=== PATIENT | male | born 1955 | race Caucasian/White ===

== ENCOUNTER → 2020-09-01 09:30 | Outpatient (BNVA) | payer MEDICARE, SELFPAY | PROVIDERS: Family Provider Electrodiagnostic Medicine; PCP Emergency Medicine; Visit Provider Internal Medicine Cardiovascular Disease | DX: E78.5 Hyperlipidemia, unspecified (principal) | CPT/HCPCS: 80061 ==

== ENCOUNTER → 2021-01-13 11:20 | Outpatient (BNVA) | payer MEDICARE, SELFPAY | PROVIDERS: Family Provider Electrodiagnostic Medicine; PCP Emergency Medicine; Referring Provider Electrodiagnostic Medicine; Visit Provider Urology | DX: N40.0 Benign prostatic hyperplasia without lower urinary tract symptoms (principal); R31.9 Hematuria, unspecified | CPT/HCPCS: 81003; 87086; 88112 ==

== ENCOUNTER 2021-01-18 08:53 | Outpatient (CLI) | payer MEDICARE, SELFPAY ==
[2021-01-18 09:46] LABS: Blood Urea Nitrogen 14 mg/dL (8-23); Glomerular Filtration Rate 74.5 mL/min (90-130)
[2021-01-18] MEDS: iohexol 300 mg/mL 100 mL Btl IV (10:00)
--- NOTE | 2021-01-18 10:30 | CT_ITS ---
WS: [id number] CT ABDOMEN AND PELVIS WITH AND WITHOUT CONTRAST HISTORY: HEMATURIA TECHNIQUE: Unenhanced 5 mm axial imaging first performed through the abdomen. Post contrast imaging t hrough the abdomen and pelvis. Oral contrast has not been provided. Sagittal and coronal reformats a re submitted. All CT scans at [facility] use at least one of these dose optimization tech niques: automated exposure control; mA and/or kV adjustment per patient size (includes targeted exams where dose is matched to clinical indication); or iterative reconstruction. CONTRAST: Omnipaque 300; 95 mL IV. DLP: 3872.43 mGy.cm COMPARISON: None available. Lung bases are clear. Mild enlargement of the heart. Dense calcification or RIGHT coronary artery jojo nt. Small hiatal hernia. Normal size liver. There are a few scattered hypodensities which are too small to characterize. The l argest is 4 mm along the diaphragmatic surface. No bile duct dilatation. Normal portal vein. Normally distended gallbladder with cholelithiasis. No acute cholecystitis. Normal size spleen with a few gra nulomata. No adrenal mass. Mild atherosclerosis aorta. No adenopathy or ascites. No free fluid. RIGHT kidney: 12.3 cm in length. No renal obstruction, mass or calcification. No uroepithelial lesion in the ureter. LEFT kidney: No hydronephrosis or mass. Seen on the delayed imaging there is a very slight narrowing of the distal LEFT ureter and very small amount of increased soft tissue seen best on the sagittal re formats at the ureteral insertion site. This is asymmetric to the RIGHT. No GI tract obstruction. The appendix is not definitely identified no evidence for appendicitis. No d iverticulitis. Prostate gland is enlarged and heterogeneous encroaching into the bladder. There is a lobulated soft tissue component extending into the lumen of the urinary bladder which is slightly more hypervascular than the remaining prostate gland. Potentially this could represent a bladder neoplasm. The excreted contrast is being distorted by this additional lobulated soft tissue. No osteoblastic or osteolytic bone disease. CT/CT abdomen pelvis wo/w [id number] IMPRESSION: 1. Lobulated soft tissue mass measures 2.5 x 1.9 cm extending into the base of the urinary bladder. This may be part of the prostate gland but the enhancemen t is greater than the adjacent prostate gland. Bladder neoplasm needs to be exc luded. 2. There is additional mild soft tissue thickening at the LEFT UV junction. Ev aluation for possible distal ureteral neoplasm should be considered. No renal o bstruction. 3. Cholelithiasis without acute cholecystitis. 4. No adenopathy or ascites.
== END 2021-01-18 08:54 | disposition home or self-care (01) ==
PROVIDERS: PCP Electrodiagnostic Medicine; Visit Provider Urology
DX: R31.9 Hematuria, unspecified (principal); K80.20 Calculus of gallbladder without cholecystitis without obstruction; N32.9 Bladder disorder, unspecified
CPT/HCPCS: 36415; 74178; 82565; 84520; 87635

== ENCOUNTER 2021-01-21 16:05 | Observation (INO) | payer MEDICARE, SELFPAY ==
[2021-01-21] VITALS (11 sets, daily range): BP systolic 145–186; BP diastolic 82–107; PULSE 51–71; RESP 16–20; TEMP 36.1–37.2; O2SAT 93–97
--- NOTE | 2021-01-21 12:38 | ECG_ITS ---
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 Measurements Intervals [place] Rate: 51 P: 47 NC: 246 QRS: -29 QRSD: 132 T: -16 QT: 465 QTc: 428 Interpretive Statements SINUS BRADYCARDIA WITH FIRST DEGREE AV BLOCK INTRAVENTRICULAR CONDUCTION DELAY [130+ ms QRS DURATION] INFERIOR MYOCARDIAL INFARCTION [40+ ms Q WAVE AND/OR ST/T ABNORMALITY IN II/aVF], OF INDETERMINATE AGE No previous ECG available for comparison Electronically Signed On 01-22-2021 14:57:35 CDT by Sonja Norton M.D. [email or web address]
--- NOTE | 2021-01-21 12:38 | XR_ITS ---
WS: [id number] Chest 2 views, 01/21/2021 Clinical Data: Newly diagnosed bladder tumor Comparison: Portable chest, 04/26/2013. Findings: No nodules, masses or effusions are seen. The heart is normal. The pulmonary vascularity is not increased. No pneumonia or pneumothorax is seen. The aortic arch and descending aorta show mild tortuosity. XR/XR chest 2V* [id number] Impression: Atherosclerosis.
[2021-01-21] MEDS: sodium chloride 0.9% 1,000 ML 30 ML IV (13:11)
--- NOTE | 2021-01-21 13:26 | ANES.PREANE2 ---
Pre-Anesthetic Assessment Pre-Anesthetic Assessment: Height/Weight: Height 29.18 m Weight 97.522 kg Preop Diagnosis: Newly diagnosed bladder tumor Proposed Procedure: Operation Date: 01/21/21 14:15 Proposed Procedures p Transurethral Resection Bladder Tumor 27199 c67.0(Not Applicable) - Oneil Stephens MD s Cystoscopy(Not Applicable) - Oneil Stephens MD Familial anesthetic complications: none Was Beta Yvan taken within 24 hours: N/A Was Clonidine taken within 24 hours: N/A Last intake: Intake Last Liquid Date 01/21/21 Last Liquid Time 09:00 Last Solid Date 01/20/21 Last Solid Time 18:30 Social: Social History: No alcohol and No tobacco Exam: Pre-Anes Outpt Exam: alert, oriented x 3, clear to auscultation bilaterally and regular rate & rhythm Airway: Cervical ROM: WNL MP: 3 Dentition: False CV/HEM: CV/HEM: CAD (stent 2013 - holding plavix) and HTN GI: GI: GERD Metabolic: Metabolic: Hyperlipidemia and Morbid obesity Anesthetic Plan: ASA status: 3 Anesthesia: General Risk of > 500 ml blood loss (7ml/kg in children): No Meds/Allergies Current Medications: Current Medications Generic Name Dose Route Start Last Admin Trade Name Freq PRN Reason Stop Dose Admin Sodium Chloride 1,000 mls @ 30 ml s/hr 01/21/21 13:00 01/21/21 13:11 Sodium Chloride 0.9% IV 01/22/21 12:59 30 mls/hr .Q24H ELAINE Administration PFSH Anesthesia PFSH: Medical History ASHD (arteriosclerotic heart disease) BPH loc w urin obs/LUTS Elevated PSA HTN (hypertension) Primary malignant neoplasm of trigone of urinary bladder Surgical History History of dental surgery History of facial surgery History of surgery on wrist Hx of heart artery stent Family History Father , IN HIS 80'S CAD (coronary artery disease) Diabetes Mother , AT AGE 76 Chronic kidney disease (CKD) Social History Alcohol intake: never Marital status: Current occupational status: retired Data Anesthesia Cardiac Studies: No Data to Display
--- NOTE | 2021-01-21 14:06 | P.HPUD_ITS ---
Surgery/Procedure H&P Update DATE OF PROCEDURE: January 21, 2021 DATE H&P PERFORMED: 01/13/21 H&P UPDATE INFORMATION: I have reviewed H&P completed within last 30 days, I have examined patient prior to procedure, No changes to prior documentation and H&P is in [facility] EMR on date indicated CHANGES TO PREVIOUS DOCUMENTATION: Reviewed again the pertinent points related to the procedure, postop care, long-term surveillance etc. Discussed the locat ion potentially involving ureteral orifice and may require more work to assess the ureter. All questions answered. They expressed contentment and desire to proceed as planned PREOP DIAGNOSIS: Newly diagnosed bladder tumor PLANNED PROCEDURE: Operation Date: 01/21/21 14:15 Proposed Procedures p Transurethral Resection Bladder Tumor 68280 c67.0(Not Applicable) - Oneil Stephens MD s Cystoscopy(Not Applicable) - Oneil Stephens MD
[2021-01-21] MEDS: levofloxacin-dextrose 5 % 500 MG/100 ML PREMIX 100 MG IV (15:05)
--- NOTE | 2021-01-21 15:13 | PM.OP ---
Operative Report Date of procedure: January 21, 2021 Pre-op Diagnosis: Newly diagnosed bladder tumor Post-op Diagnosis: Newly diagnosed bladder tumor Procedure Done: 1. Cystoscopy, transurethral resection of bladder tumor MEDIUM Pathology: Bladder tumor chips Surgeon: Kat Anesthesia: General Estimated blood loss: Less than 20 cc Urine output: Not measured Complications: None Findings: Papillary tumor with appearance of noninvasive, well differentiated. 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 Located on the trigone. Could not tell the clinic whether it was involving the orifices or not. No evidence of that involvement though on CT scan. Admitted now for TURBT. Procedure: After routine preoperative evaluation examination and obtaining of informed consent he was taken to the operating suite on 01/21/2021 where general anesthesia was administered without difficulty after appropriate timeout was performed, SCDs confirmed to be functioning, preoperative antibiotics administered, beta-betsey protocol confirmed. Prepped and draped in usual sterile fashion in dorsolithotomy position paying careful attention to avoiding pressure points. 21 [place]er cystoscope with 30 degree lens was introduced into the urethra meatus and advanced to the bladder to videoscopy. Bladder was systematically examined. The tumor was proven to actually be on a relatively thin stalk onto the posterior bladder neck/prostatic vesicle junction. There was no bladder tumor on the bladder wall proper. The orifices were clear of any lesions. The tumor was Multifrondular coming down to this narrowed area extending probably 3-1/2 to 4 cm in total diameter. Urethra was then calibrated with [place] sounds and easily accommodated 30 [place]er. 2% lidocaine jelly was instilled into the urethra. 25 [place] continuous-flow resectoscope sheath was introduced into the well-lubricated urethra with the visual obturator and advanced into the bladder. A gyrus bipolar system was utilized for resection first with the super loop and the button probe for fulguration. All tumor was resected with the super loop and the tumor was evacuated. Deep sections at the base of the tumor were then collected with the super loop and sent for base of tumor . Button probe was then utilized to fulgurate the bladder neck completely with some extension into the prostatic fossa to avoid bladder neck contracture At the completion of the procedure all tumor specimens were confirmed to be out of the bladder, hemostasis was meticulous. The orifices were uninvolved. Bladder was drained with a 22 [place]er three-way Haji catheter with 35 cc in the balloon. Efflux was clear. No CBI initiated. Irrigation port was plugged Tolerated procedure well without complications and was awakened in the operating room and returned to recovery in stable condition. PLANS: 1. Admit to observation overnight 2. Mitomycin in the senior manager quality assurance 3. Anticipate discharge tomorrow
[2021-01-21 15:18] LABS: Basophils % 0.5 %; Eosinophils # 0.2 10^3/uL (0.0-0.8); Eosinophils % 3.1 %; Hematocrit 39.5 % (42.0-52.0); Hemoglobin 13.1 g/dL (11.7-16.6); Lymphocytes % 18.4 %; Mean Corpuscular HGB Conc 33.2 g/dL (30.0-36.0); Mean Corpuscular Hemoglobin 29.5 pg (28.0-34.0); Mean Platelet Volume 9.9 fL (7.4-10.4); Monocytes # 0.5 10^3/uL (0.2-0.9); Monocytes % 9.8 %; Neutrophils # 3.76 10^3/uL (1.8-7.7); Nucleated Red Blood Cells % 0 %; Platelet Count 243 10^3/cmm (130-400); Red Blood Count 4.44 10^6/uL (4.1-5.3); Red Cell Distribution Width 13.7 % (12.1-15.1); White Blood Count 5.5 10^3/uL (4.0-10.0)
[2021-01-21] MEDS: lidocaine 2% Urojet 20 mL TOPICAL (15:35)
[2021-01-21 16:03] LABS: Alanine Aminotransferase 17 U/L (0-41); Albumin Level 3.7 g/dL (3.5-5.2); Alkaline Phosphatase 100 IU/L (40-130); Anion Gap 12.7 (5-19); Aspartate Amino Transferase 14 U/L (0-40); Blood Urea Nitrogen 17 mg/dL (8-23); Calcium 8.4 mg/dL (8.5-10.5); Carbon Dioxide 28 mmol/L (22-29); Chloride 102 mmol/L (98-107); Globulin 2.4 g/dL (1.3-4.6); Glomerular Filtration Rate 84.2 mL/min (90-130); Glucose 86 mg/dL (65-115); Osmolality Calculated 289 mOsm/kg (285-295); Potassium 3.7 mmol/L (3.5-5.1); Sodium 139 mmol/L (136-145); Total Bilirubin 0.8 mg/dL (0.15-1.2); Total Protein 6.1 g/dL (6.6-8.7)
--- NOTE | 2021-01-21 16:56 | ANE.PACU2 ---
Inpatient post-anesthesia follow up: Airway intact: Yes Vital signs: Temperature 97.7 F Pulse Rate 60 Respiratory Rate 18 Blood Pressure 167/98 Pulse Oximetry 94 Oxygen Delivery Me thod Room Air Oxygen Flow Rate Fraction of Inspir ed Oxygen Hydration adequate: Yes Nausea and vomiting: No Pain level: 2 Mental status: Baseline
[2021-01-21] MEDS: dextrose 5%-ns + KCl 20 20 MEQ/1,000 ML BAG 100 MEQ IV (18:13)
[2021-01-21] MEDS: docusate sodium 100 mg Capsule PO (18:19)
[2021-01-21] MEDS: losartan 50 mg Tablet 100 MG PO (18:19)
[2021-01-21] MEDS: tamsulosin 0.4 mg Capsule PO (18:19)
[2021-01-21] MEDS: metoprolol tartrate 25 mg Tablet PO (20:10)
--- NOTE | 2021-01-21 20:11 | PC.NURSE ---
PM NOTE PER DAY SHIFT NURSE PT POST OP BLOOD PRESSURE HIGH - MONITORED SINCE SHIFT CHANGE AT 1900 - CURRENT BP 171/100 LEFT ARM - METOPROLOL GIVEN - AT SIDE AT STATES PTS HEART RATE NORMAL RUNS MID 50'S
[2021-01-21] MEDS: ALPRAZolam 0.5 mg Tablet PO (20:58)
[2021-01-22 00:05] VITALS: BP 136/84; PULSE 65; RESP 18; TEMP 36.9; O2SAT 93
[2021-01-22 03:15] VITALS: BP 132/79; PULSE 62; RESP 18; TEMP 36.6; O2SAT 96
--- NOTE | 2021-01-22 04:01 | PC.NURSE ---
END OF SHIFT SUMMARY PT HAS RESTED WITHOUT DIFFICULTY THROUGHOUT SHIFT -BLOOD PRESSURE HAS RETURNED TO NORMAL - HAS REMAINED AT SIDE - FAY HAS REMAINED PATENT WITH PEACH TO DARK YELLOW URINE NOTED THROUGHOUT SHIFT - PT HAS NOT VOICED ANY DIFFICULTY THROUGHOUT SHIFT
[2021-01-22] MEDS: dextrose 5%-ns + KCl 20 20 MEQ/1,000 ML BAG 100 MEQ IV (04:50)
--- NOTE | 2021-01-22 06:45 | PC.NURSE ---
[address] URIBE INFUSED MITOMYCIN PER FAY INTO BLADDER - CLAMPED PER DOC - PT INSTRUCTED THAT CATHETER WILL BE DRAINED IN 1 HOUR AND TO NOTIFY STAFF IF INABILITY TO WAIT 1 HOUR PRIOR TO DRAINING - DAYSHIFT NURSE TO UNCLAMP, DRAIN AND REINSTILL BLADDER WITH APPROX 200 NS PRIOR TO DISCONTINUING FAY - PT TO HAVE 1-2 GOOD VOIDS PRIOR TO DISCHARGE
--- NOTE | 2021-01-22 06:48 | P.DS_ITS ---
Discharge Providers Date of Admission: 01/21/21 16:05 Date of Discharge: January 22, 2021 Attending Provider at Admission: Oneil Stephens MD Attending Provider at Discharge: Oneil Stephens MD Primary Care Provider: Jermaine Day DO Diagnoses at Discharge Discharge Diagnosis (1) Primary cancer of urinary bladder neck: Status: Acute Permanent problem details: Arising at the 7 o'clock position at the bladder neck extending into the prostatic lumen just barely. TURBT on 01/21/2021 (2) HTN (hypertension): Status: Acute Qualifiers: Hypertension type: essential hypertension Qualified Code(s): I10 - Essential (primary) hypertension (3) ASHD (arteriosclerotic heart disease): Status: Acute (4) BPH loc w urin obs/LUTS: Status: Acute Reason for Visit Reason for Visit: cystoscopy transurethral resection of bladder tumo Hospital Course Hospital Course Was admitted on the day of the procedure which went well. In the clinic it appeared that the tumor was at the trigone but under anesthesia inspection showed that it was emanating off a relatively small stalk at the 6 o'clock position at the bladder neck. It was completely resected and the base fulgurated after deep sampling. His postoperative course was unremarkable. Procedure: MITOMYCIN INTRAVESICAL INSTILLATION 40 mg in 40 cc normal saline instilled for 1 hour into the bladder. Tolerated well. No complications I personally instilled the medication. Passed a voiding trial without difficulty. Discharged in stable condition the morning of postop day #1. PLANS: 1. Follow-up in about 2 months with first surveillance cystoscopy 2. Call next week for pathology report check if he has not heard from my office 3. Informed him how to reach me after hours if there is any concerns or questions. Physical Exam Narrative: EXAM NARRATIVE: Alert oriented no acute distress No labored respirations Abdomen: Soft nontender normal genitourinary exam. Urine is clear Psychiatric: Normal mentation. Extremity: No edema no cyanosis Urinary Catheter Management^: 3-way Urethral CBI: Cath Placed During This Visit: yes Reason for Continuing Indwelling Catheter: Required Immobilization for Trauma or Surgery or Anesthesia Urinary Catheter Date of Insertion: 01/21/21 Urinary Catheter Time of Insertion: 15:45 Discharge Data Data Completed and Pending: Completed Studies During Hospitalization Category Date Time Status XR chest 2V* 7104 6 Routine Exams 01/21/21 12:38 Completed Pending at discharge Category Date Time Status Pathology: Surgic al [PTH] Routine Pth 01/22/21 06:44 Ordered Labs from last 24 hours 01/21/21 01/21/21 13:31 13:31 WBC 5.5 RBC 4.44 Hgb 13.1 Hct 39.5 L MCV 89.0 MCH 29.5 MCHC 33.2 RDW 13.7 Plt Count 243 MPV 9.9 Neut % (Auto) 68.0 Lymph % (Auto) 18.4 Spencer % (Auto) 9.8 Eos % (Auto) 3.1 Baso % (Auto) 0.5 Neut # (Auto) 3.76 Lymph # (Auto) 1.0 Spencer # (Auto) 0.5 Eos # (Auto) 0.2 Baso # (Auto) 0.0 Nucleated RBC % (a uto) 0 Nucleated RBCs # 0.0 Sodium 139 Potassium 3.7 Chloride 102 Carbon Dioxide 28 Anion Gap 12.7 BUN 17 Creatinine 0.9 GFR Calculation 84.2 L Glucose 86 Calculated Osmolal ity 289 Calcium 8.4 L Total Bilirubin 0.8 AST 14 ALT 17 Alkaline Phosphata se 100 Total Protein 6.1 L Albumin 3.7 Globulin 2.4 Vitals: Last Vital Signs Temp 97.9 F 01/22/21 03:15 Pulse 62 01/22/21 03:15 Resp 18 01/22/21 03:15 BP 132/79 01/22/21 03:15 Pulse Ox 96 01/22/21 03:15 Discharge Plan Discharge Patient Disposition: Home Condition: Stable Prescriptions: Continued omeprazole 40 mg capsule,delayed release(DR/EC) 40 mg PO DAILY RF: 0 citalopram [Celexa] 20 mg tablet 20 mg PO DAILY RF: 0 alprazolam [Xanax] 0.5 mg tablet 0.5 mg PO DAILY PRN (Reason: Anxiety) RF: 0 tamsulosin 0.4 mg capsule 0.4 mg PO BID RF: 0 simvastatin 40 mg tablet 40 mg PO DAILY Qty: 90 RF: 3 isosorbide mononitrate 30 mg tablet extended release 24 hr 30 mg PO DAILY Qty: 90 RF: 3 metoprolol tartrate 25 mg tablet 25 mg PO BID Qty: 180 RF: 3 hydrochlorothiazide 12.5 mg capsule 12.5 mg PO DAILY Qty: 90 RF: 3 losartan 100 mg tablet 100 mg PO BID Qty: 180 RF: 3 nitroglycerin [Nitrostat] 0.4 mg tablet, sublingual 0.4 mg SUBLINGUAL Q5M PRN (Reason: chest pain) Qty: 25 RF: 2 Held aspirin [Adult Low Dose Aspirin] 81 mg tablet,delayed release (DR/EC) 81 mg PO DAILY RF: 0 Hold Instructions: Resume on 01/29/21. clopidogrel 75 mg tablet See Rx Instructions .ROUTE .COMPLEX Qty: 90 RF: 1 Hold Instructions: Resume on 02/01/21. Discharge Orders: Discharge Order (Routine); Ordered 01/22/21 Ordered By: Oneil Stephens Referrals: Oneil Stephens MD [Physician] - 2 months (Cystoscopy Call next week for pathology report.) Discharge Diet: Advance as tolerated Discharge Activity: Limit activity as instructed Activity Restrictions/Additional Instructions: 1. No lifting >10 pounds for least 3 weeks 2. Can restart aspirin in 1 week. If no significant increase in bleeding can restart Plavix in about 10 days 3. It was very important to take it easy especially after restarting your blood thinners. 4. We will plan on a surveillance cystoscopy in about 2 months. 5. Please call next week if you have not heard from my office so we can review the pathology report. I do not expect there will be any significant additional treatment necessary in the short-term. Follow-up though is very important. Discharge Attestations Time Spent in Discharge Care*: less than 30 min Quality Metrics Clinical Quality Measures During this hospital stay, did patient experience: None Coding Level of Care Code Acute [facility] note Diagnoses Primary cancer of urinary bladder neck C67.5 HTN (hypertension) I10 Hypertension type: essential hypertension ASHD (arteriosclerotic heart disease) I25.10 BPH loc w urin obs/LUTS N40.1
--- NOTE | 2021-01-22 07:52 | PC.NUTR ---
Nutrition note: Pt triggered for assessment due to low BMI, however error in height noted. Recommend obtain pt's correct height when possible. Will complete assessment at LOS or as needed per further consult.
--- NOTE | 2021-01-22 07:56 | PC.NURSE ---
Haji bag drained of 500 cc of dark yellow urine. Haji bag attached back to catheter in place. Mytmycin drained from Haji into Haji bag and disposed of appropriately. Haji tubing clamped and 150 cc or Sterile Saline infused into Haji catheter. 2 cc balloon deflated and Haji catheter removed from patient. Patient instructed to urinate in urinal and to let staff know when he does urinate so bladder scan can be performed. This is to insure proper emptying of bladder.
[2021-01-22 08:00] VITALS: BP 167/82; PULSE 53; RESP 18; TEMP 36.4; O2SAT 96
[2021-01-22] MEDS: metoprolol tartrate 25 mg Tablet PO (09:41)
[2021-01-22] MEDS: citalopram 20 mg Tablet PO (09:41)
[2021-01-22] MEDS: atorvastatin 40 mg Tablet 20 MG PO (09:41)
[2021-01-22 09:42] VITALS: BP 167/82
[2021-01-22] MEDS: tamsulosin 0.4 mg Capsule PO (09:42)
[2021-01-22] MEDS: pantoprazole DR 40 mg Tablet PO (09:42)
[2021-01-22] MEDS: docusate sodium 100 mg Capsule PO (09:42)
[2021-01-22] MEDS: hydroCHLOROthiazide 25 mg Tablet 12.5 MG PO (09:42)
[2021-01-22] MEDS: losartan 50 mg Tablet 100 MG PO (09:42)
[2021-01-22] MEDS: isosorbide mononitrate ER 30 mg Tablet PO (09:43)
[2021-01-22 10:49] VITALS: BP 167/82; PULSE 53; RESP 18; TEMP 36.4; O2SAT 96
--- NOTE | 2021-01-22 10:54 | PC.NURSE ---
Post void residuals noted as followed 0800 void 100 ml residual 25ml 0846 void 150 residual 78 ml 0900 void 175 ml residual 0ml 0930 void 100 ml residual 0 ml
== END 2021-01-22 10:00 | disposition home or self-care (01) ==
LOC: MEDSURG 16:05
PROVIDERS: Admitting Provider Urology; PCP Electrodiagnostic Medicine; Visit Provider Urology
PROC: 0TBB8ZZ Excision of Bladder, Via Natural or Artificial Opening Endoscopic (ICD-10-PCS; CPT 52235; principal; 2021-01-21 14:05)
PROC: 0TJB8ZZ Inspection of Bladder, Via Natural or Artificial Opening Endoscopic (ICD-10-PCS; CPT 52000; 2021-01-21 14:05)
DX: C67.5 Malignant neoplasm of bladder neck (principal); I10 Essential (primary) hypertension; I25.10 Atherosclerotic heart disease of native coronary artery without angina pectoris; N40.1 Benign prostatic hyperplasia with lower urinary tract symptoms; N13.8 Other obstructive and reflux uropathy; Z95.5 Presence of coronary angioplasty implant and graft; E78.5 Hyperlipidemia, unspecified; E66.01 Morbid (severe) obesity due to excess calories
CPT/HCPCS: 52235; 36415; 71046; 80053; 85025; 88305; 93005; G0378; J1100; J1956; J2405; J2704; J2710; J3010; J3490; J7030; J9280

== ENCOUNTER → 2021-03-25 09:32 | Outpatient (BNVA) | payer MEDICARE, SELFPAY | PROVIDERS: PCP Electrodiagnostic Medicine; Visit Provider Urology | DX: C67.5 Malignant neoplasm of bladder neck (principal); N40.1 Benign prostatic hyperplasia with lower urinary tract symptoms; N39.41 Urge incontinence | CPT/HCPCS: 81003 ==

== ENCOUNTER → 2021-07-20 09:18 | Outpatient (BNVA) | payer MEDICARE, SELFPAY | PROVIDERS: PCP Electrodiagnostic Medicine; Visit Provider Urology | DX: C67.5 Malignant neoplasm of bladder neck (principal); N39.41 Urge incontinence; N40.1 Benign prostatic hyperplasia with lower urinary tract symptoms | CPT/HCPCS: 81003 ==

== ENCOUNTER → 2022-02-03 11:24 | Outpatient (BNVA) | payer MEDICARE, SELFPAY | PROVIDERS: PCP Electrodiagnostic Medicine; Visit Provider Internal Medicine Cardiovascular Disease | DX: I25.10 Atherosclerotic heart disease of native coronary artery without angina pectoris (principal); I10 Essential (primary) hypertension; E78.5 Hyperlipidemia, unspecified; R00.1 Bradycardia, unspecified; I44.0 Atrioventricular block, first degree; I44.4 Left anterior fascicular block; I25.2 Old myocardial infarction; R94.31 Abnormal electrocardiogram [ECG] [EKG] | CPT/HCPCS: 93005; 99214 ==

== ENCOUNTER 2022-06-29 12:56 | Outpatient (CLI) | payer MEDICARE, SELFPAY ==
[2022-06-29 14:01] LABS: Anion Gap 10.7 (5-19); Blood Urea Nitrogen 13 mg/dL (8-23); Calcium 9.6 mg/dL (8.5-10.5); Carbon Dioxide 30 mmol/L (22-29); Chloride 96 mmol/L (98-107); Glomerular Filtration Rate 74.1 mL/min (90-130); Glucose 78 mg/dL (65-115); NT Pro B Type Natriuretic Pept 183 pg/mL (0-125); Osmolality Calculated 275 mOsm/kg (285-295); Potassium 3.7 mmol/L (3.5-5.1); Sodium 133 mmol/L (136-145)
== END 2022-06-29 12:57 | disposition home or self-care (01) ==
PROVIDERS: PCP Electrodiagnostic Medicine; Visit Provider Internal Medicine Cardiovascular Disease
DX: I10 Essential (primary) hypertension (principal); I25.10 Atherosclerotic heart disease of native coronary artery without angina pectoris
CPT/HCPCS: 36415; 80048; 83880

== ENCOUNTER → 2022-07-19 10:29 | Outpatient (BNVA) | payer OTHER, SELFPAY | PROVIDERS: PCP Electrodiagnostic Medicine; Visit Provider Urology | DX: N40.1 Benign prostatic hyperplasia with lower urinary tract symptoms (principal); C67.5 Malignant neoplasm of bladder neck | CPT/HCPCS: 52000; 81003 ==

== ENCOUNTER → 2023-02-13 11:23 | Outpatient (BNVA) | payer MEDICARE, SELFPAY | PROVIDERS: PCP Electrodiagnostic Medicine; Visit Provider Internal Medicine Cardiovascular Disease | DX: E78.5 Hyperlipidemia, unspecified (principal); I25.10 Atherosclerotic heart disease of native coronary artery without angina pectoris; I10 Essential (primary) hypertension | CPT/HCPCS: 99214 ==

== ENCOUNTER → 2023-08-24 10:01 | Outpatient (BNVA) | payer MEDICARE, SELFPAY | PROVIDERS: PCP Electrodiagnostic Medicine; Visit Provider Internal Medicine Cardiovascular Disease | DX: I25.10 Atherosclerotic heart disease of native coronary artery without angina pectoris (principal); I10 Essential (primary) hypertension; E78.5 Hyperlipidemia, unspecified | CPT/HCPCS: 99214 ==

== ENCOUNTER → 2024-02-26 11:16 | Outpatient (BNVA) | payer MEDICARE, SELFPAY | PROVIDERS: PCP Electrodiagnostic Medicine; Visit Provider Internal Medicine Cardiovascular Disease | DX: I25.10 Atherosclerotic heart disease of native coronary artery without angina pectoris (principal); I10 Essential (primary) hypertension; E78.5 Hyperlipidemia, unspecified; I95.1 Orthostatic hypotension | CPT/HCPCS: 99214 ==

== ENCOUNTER → 2024-08-28 11:09 | Outpatient (BNVA) | payer MEDICARE, SELFPAY | PROVIDERS: PCP Electrodiagnostic Medicine; Visit Provider Nurse Practitioner Family | DX: I25.10 Atherosclerotic heart disease of native coronary artery without angina pectoris (principal); E78.5 Hyperlipidemia, unspecified; I95.1 Orthostatic hypotension; I10 Essential (primary) hypertension; I25.2 Old myocardial infarction | CPT/HCPCS: 99214 ==

== ENCOUNTER → 2025-02-26 14:13 | Outpatient (BNVA) | payer MEDICARE, SELFPAY | PROVIDERS: PCP Electrodiagnostic Medicine; Visit Provider Internal Medicine Cardiovascular Disease | DX: I25.10 Atherosclerotic heart disease of native coronary artery without angina pectoris (principal); I10 Essential (primary) hypertension; I25.2 Old myocardial infarction | CPT/HCPCS: 99214 ==